=== PATIENT | female | born 1950 | race Caucasian/White ===

== ENCOUNTER 2017-12-26 14:35 | Emergency (ER) | payer OTHER ==
[~2017-12-26] VITALS: Ht 172.7 cm; Wt 49.3 kg
[~2017-12-26 14:35] MED LIST: ATORVASTATIN CA10 MG PO; CENTRAVITES 501 EACH PO; GABAPENTIN300 MG PO; GINGER250 MG PO; OXAYDO5 MG PO; PROCHLORPERAZIN10 MG PO; RELADOR PAK PL1 EACH TP; SALMON OIL 1,01 EACH PO; TUMERIC PO; VALIUM2 MG PO; XYLOCAINE VISC100 ML MM; [UNRECOGNIZED DRUG - OTHER] PO
[2017-12-26 14:57] VITALS: BP 163/92
== END 2017-12-26 16:30 | disposition left against medical advice (07) ==
LOC: EME 14:35
DX: H02.846 Edema of left eye, unspecified eyelid (principal); R41.0 Disorientation, unspecified; Z85.9 Personal history of malignant neoplasm, unspecified; Z92.21 Personal history of antineoplastic chemotherapy; Z53.21 Procedure and treatment not carried out due to patient leaving prior to being seen by health care provider
CPT/HCPCS: 80048; 81003; 85027